=== PATIENT | male | born 1995 | race Two or more races ===

== ENCOUNTER 2023-05-20 09:48 | Emergency (ER) | payer OTHER ==
[~2023-05-20] VITALS: Ht 177.8 cm; Wt 79.5 kg
[2023-05-20 09:59] VITALS: TEMP 98.4
[2023-05-20 10:10] LABS: COVID AG,FIA SOURCE NASAL SWAB
[2023-05-20 10:35] LABS: INFLUENZA TYPE A NEGATIVE FOR TYPE A (NEGATIVE); INFLUENZA TYPE B NEGATIVE FOR TYPE B (NEGATIVE); SARS-COV2 (COVID) ANTIGEN,FIA Negative (Negative)
[2023-05-20 12:41] VITALS: BP 123/79; PULSE 64; RESP 16
== END 2023-05-20 12:45 | disposition home or self-care (01) ==
LOC: EMS 09:49
DX: J06.9 Acute upper respiratory infection, unspecified (principal); Z20.822 Contact with and (suspected) exposure to COVID-19
CPT/HCPCS: 71045; 87804; 99284